=== PATIENT | male | born 1950 | race Caucasian/White ===

== ENCOUNTER → 2016-11-08 | Outpatient (CLI) | payer MEDICARE, OTHER | END | disposition disaster alternative care site (69) | LOC: GCAR 08:50 | DX: I48.91 Unspecified atrial fibrillation (principal) ==

== ENCOUNTER → 2016-12-27 | Outpatient (CLI) | payer MEDICARE, OTHER ==
--- NOTE | ~2016-12-27 | ESTC ---
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 Risk Factors The patient risk factors include:former tobacco use and ( years not smokin). Conclusions Summary No TID. No perfusion abnormalities. LVEF:64%. Normal wall motion. Stress Protocols Resting ECG RSR. Pre-stress physical exam: Un changed. Predicted HR: 154 bpm ECG Findings [address] depression involving leads 2,3,avf,V4-V6. Arrhythmias A flutter at a rate of 166 BPM at peak exercise. Symptoms No chest pain. Stress Interpretation Duration:7.01 mins. No chest pain. A flutter at 166 bpm at peak exercise. EK mm ST depression involving the inferolateral leads. DTS:High risk. Imaging Results High risk findings Summed scores - Summed stress score: 4 - Summed rest score: 11 - Summed difference score: -7 Stress ejection Ejection fraction:64 % EDV :77 ml ESV :28 ml Stroke volume :49 ml LV mass :112 gr LV size:Normal Normal LV function Imaging Protocols Rest Stress Isotope:Tc99m Sestamibi IV Isotope: Tc99m Sestamibi IV Isotope dose:10.7 mCi Isotope dose:32 mCi Date:12/27/2016 07:00 Date:12/27/2016 08:53 Technique: SPECT Technique: Gated Supine SPECT Supine Scan Time:45-60 minutes post Scan Time:45-60 minutes post injection injection Medical History Admission Data Admission date: 12/27/2016 Admission Time: 06:40 Hospital Status: Outpatient. Signatures dtt: Lisa Li dtd: 12/27/16 [facility] Physician Self Edit
== END | disposition disaster alternative care site (69) ==
LOC: GRAD 06:40
DX: R07.9 Chest pain, unspecified (principal); Z87.891 Personal history of nicotine dependence
CPT/HCPCS: A9500